=== PATIENT | female | born 1995 | race Caucasian/White ===

== ENCOUNTER 2023-03-16 15:42 | Outpatient (CLI) | payer BC, SELFPAY ==
[2023-03-16 18:29] LABS: Basophils Percent Auto 0.3 % (0.2-1.2); Eosinophils Absolute Auto 0.2 K/mm3 (0-0.3); Eosinophils Percent Auto 1.5 % (0-4.4); Hematocrit 39.6 % (37.0-47.0); Hemoglobin 13.4 g/dL (12.0-15.0); Immature Granulocyte Absolute 0.04 K/mm3 (0.00-0.031); Immature Granulocyte Percent A 0.4 % (0-0.5); Lymphocytes Absolute Auto 2.41 K/mm3 (0.9-3.2); Lymphocytes Percent Auto 22.7 % (18.3-44.2); Mean Corpuscular HGB Conc 33.8 g/dl (32-36); Mean Corpuscular Hemoglobin 30.8 pg (26-34); Mean Platelet Volume 9.2 fl (7.4-10.4); Monocytes Absolute Auto 0.9 K/mm3 (0.1-0.6); Monocytes Percent Auto 8.2 % (2.6-8.5); Neutrophils Absolute Auto 7.1 K/mm3 (1.3-6.7); Neutrophils Percent Auto 66.9 % (45.5-73.1); Platelet Count Result 214 k/mm3 (150-375); Red Blood Count 4.35 M/mm3 (4.2-5.4); Red Cell Distribution Width 11.6 % (11.5-14.5); White Blood Count 10.6 K/mm3 (4.5-10.0)
[2023-03-16 20:17] LABS: HIV 1/2 Ab P24 Ag Result Negative (Negative); Rubella IgG Antibody 13.1 IU/ML
[2023-03-16 20:38] LABS: Hepatitis B Surface Antigen Negative (Negative)
[2023-03-17 10:49] LABS: Rapid Plasma Reagin Non-Reactive (NonReactive)
== END 2023-03-16 15:43 | disposition home or self-care (01) ==
LOC: ANHGOSHLAB 15:44
PROVIDERS: Visit Provider Student in an Organized Health Care Education/Training Program
DX: N94.89 Other specified conditions associated with female genital organs and menstrual cycle (principal); N91.2 Amenorrhea, unspecified
CPT/HCPCS: 36415; 84702; 85025; 86592; 86644; 86703; 86747; 86762; 86787; 86850; 86900; 86901; 87086; 87340; G0432

== ENCOUNTER 2023-07-21 07:23 | Outpatient (CLI) | payer BC, SELFPAY ==
[2023-07-21 08:45] LABS: Hemoglobin 11.6 g/dL (12.0-15.0); Mean Corpuscular HGB Conc 33.1 g/dl (32-36); Mean Corpuscular Hemoglobin 31.4 pg (26-34); Mean Corpuscular Volume 94.9 fl (80-100); Mean Platelet Volume 9.3 fl (7.4-10.4); Platelet Count Result 159 k/mm3 (150-375); Red Blood Count 3.69 M/mm3 (4.2-5.4); Red Cell Distribution Width 11.9 % (11.5-14.5); White Blood Count 10.9 K/mm3 (4.5-10.0)
[2023-07-21 09:05] LABS: Glucose 1 Hour PP 50gm Dose 98 mg/dL
[2023-07-21 09:38] LABS: HIV 1/2 Ab P24 Ag Result Negative (Negative)
== END 2023-07-21 07:24 | disposition home or self-care (01) ==
LOC: ANHLAB 07:26
PROVIDERS: Visit Provider Student in an Organized Health Care Education/Training Program
DX: Z34.90 Encounter for supervision of normal pregnancy, unspecified, unspecified trimester (principal)
CPT/HCPCS: 36415; 82947; 85027; 86703; G0432

== ENCOUNTER 2023-09-08 14:11 | Outpatient (CLI) | payer BC, SELFPAY ==
--- NOTE | ~2023-09-08 | US_ITS ---
EXAMINATION: US OB follow up DATE: 09/08/2023 14:59 INDICATION: Encounter for supervision of normal . Assess growth and amniotic fluid ind ex. TECHNIQUE: Real-time ultrasound of the pelvis was performed. The interpreting radiologist was not pre sent for the study. COMPARISON: None. FINDINGS: There is a single living fetus in vertex presentation. The placenta is posterior and not low-lying. heart rate is 132 beats per minute (bpm). The amniotic fluid index is 17.1 cm, which is normal (5th%-95%: 7.9-24.9 cm at C5 weeks estimated gestational age). The following biometric data were obtained: BPD: 8.7 cm -> 35 weeks 0 days Head circumference: 31.4 cm -> 35 weeks 1 days Abdominal circumference: 31.7 cm -> 35 weeks 4 days Femur length: 6.9 cm -> 35 weeks 2 days These measurements are concordant. Head circumference to abdominal circumference ratio: 0.99 (normal range 0.93-1.10). Estimated weight: 2669 g (+/-) 400 g or 5 lbs. 14 oz. (+/-) 14 oz. IMPRESSION: 1. Single living fetus in vertex presentation with heart rate of 132 bpm. 2. Normal amniotic fluid index of 17.1 cm. 3. Estimated weight is 44th percentile by Hadlock criteria when 10/09/2023 is used as the estima haydee date of delivery (KATI). Please correlate with clinical information or earlier ultrasounds for mos t accurate KATI. Reviewed, dictated and finalized at location A. IMPRESSION: 1. Single living fetus in vertex presentation with heart rate of 132 bpm. 2. Normal amniotic fluid index of 17.1 cm. 3. Estimated weight is 44th percentile by Hadlock criteria when 10/09/2023 is used as the estimated date of delivery (KATI). Please correlate with clinica l information or earlier ultrasounds for most accurate KATI.
== END 2023-09-08 14:12 ==
PROVIDERS: PCP Student in an Organized Health Care Education/Training Program; Visit Provider Student in an Organized Health Care Education/Training Program
DX: Z34.90 Encounter for supervision of normal pregnancy, unspecified, unspecified trimester (principal)
CPT/HCPCS: 76816

== ENCOUNTER 2023-10-07 00:55 | Inpatient (IN) | payer BC, SELFPAY ==
[2023-10-07] VITALS (122 sets, daily range): BP systolic 84–137; BP diastolic 30–101; PULSE 68–144; RESP 16; TEMP 36.4–37.9; O2SAT 86–100; BMI 32.1
--- NOTE | 2023-10-07 01:54 | LDADM ---
This patient, Mary Jane Ayon, was admitted to Labor/Delivery/Recovery 105 on 10/07/23 at 00:55. Plans for labor, pain management and were discussed with patient. Patient/family oriented to hospital policies and general routines including ID bracelet, bed and alarms, visiting hours, pain management, procedures, bathroom and other care routines, personal items, smoking policy, room service/diet and guest tray routines, security routines, and visiting hours. Patient/Family are encouraged to report perceived risks to care and to ask questions if they do not understand what they are told or what they should do. See OBIX for further documentation.
[2023-10-07 01:55] LABS: Basophils Percent Auto 0.3 % (0.2-1.2); Eosinophils Absolute Auto 0.1 K/mm3 (0-0.3); Eosinophils Percent Auto 1.3 % (0-4.4); Hematocrit 32.7 % (37.0-47.0); Hemoglobin 11.4 g/dL (12.0-15.0); Immature Granulocyte Absolute 0.14 K/mm3 (0.00-0.031); Immature Granulocyte Percent A 1.3 % (0-0.5); Lymphocytes Absolute Auto 1.98 K/mm3 (0.9-3.2); Lymphocytes Percent Auto 17.9 % (18.3-44.2); Mean Corpuscular HGB Conc 34.9 g/dl (32-36); Mean Corpuscular Volume 88.9 fl (80-100); Mean Platelet Volume 9.7 fl (7.4-10.4); Monocytes Absolute Auto 1.3 K/mm3 (0.1-0.6); Monocytes Percent Auto 11.9 % (2.6-8.5); Neutrophils Absolute Auto 7.5 K/mm3 (1.3-6.7); Neutrophils Percent Auto 67.3 % (45.5-73.1); Platelet Count Result 143 k/mm3 (150-375); Red Blood Count 3.68 M/mm3 (4.2-5.4); White Blood Count 11.1 K/mm3 (4.5-10.0)
[2023-10-07 02:48] LABS: HIV 1/2 Ab P24 Ag Result Negative (Negative)
[2023-10-07] MEDS: LACTATED RINGERS 1,000 ML 125 ML IV CONT ×2 (04:22→09:31)
--- NOTE | 2023-10-07 05:27 | WPDANESEPP ---
Anes - Eval Pre Procedure Procedure: labor epidural Date/Time: 10/07/23 05:27 Surgeon: ranulfo Preop Diagnosis: pain during labor Pre Op Diagnosis: Labor Patient Data Age: 27 Gender: F Height: 1.7 m Weight: 93 kg Last Vital Signs Temp 36.4 C 10/07/23 04:00 Pulse 87 10/07/23 05:25 BP 112/65 10/07/23 05:25 Pulse Ox 86 L 10/07/23 05:22 O2 Del Method Room Air 10/07/23 00:55 Allergies Allergy/AdvReac Type Severity Reaction Status Date / Time amoxicillin Allergy Mild Hives Verified 10/06/23 16:01 cephalexin Allergy Mild Hives Verified 10/06/23 16:01 diphenhydramine Allergy Mild Hives Verified 10/06/23 16:01 Home Medications Medication Instructions Recorded Confirmed Type vits no.126-ferrous fum 1 tablet PO 02/22/23 09/30/23 History 28 mg iron-folic acid 800 mcg tablet (Classic ) aspirin 81 mg tablet,delayed 81 mg PO DAILY 06/16/23 09/30/23 History release (Adult Low Dose Aspirin) Laboratory Tests 10/07/23 10/07/23 01:46 01:47 WBC 11.1 H K/mm3 (4.5-10.0) RBC 3.68 L M/mm3 (4.2-5.4) Hgb 11.4 L g/dL (12.0-15.0) Hct 32.7 L % (37.0-47.0) MCV 88.9 fl (80-100) MCH 31.0 pg (26-34) MCHC 34.9 g/dl (32-36) RDW 12.0 % (11.5-14.5) Plt Count 143 L k/mm3 (150-375) MPV 9.7 fl (7.4-10.4) Immature Gran % (Auto) 1.3 H % (0-0.5) Neut % (Auto) 67.3 % (45.5-73.1) Lymph % (Auto) 17.9 L % (18.3-44.2) Braxton % (Auto) 11.9 H % (2.6-8.5) Eos % (Auto) 1.3 % (0-4.4) Baso % (Auto) 0.3 % (0.2-1.2) Lymph # (Auto) 1.98 K/mm3 (0.9-3.2) Braxton # (Auto) 1.3 H K/mm3 (0.1-0.6) Eos # (Auto) 0.1 K/mm3 (0-0.3) Baso # (Auto) 0.0 K/mm3 (0.0-0.1) Abs Immat Gran (auto) 0.14 H K/mm3 (0.00-0.031) Absolute Neuts (auto) 7.5 H K/mm3 (1.3-6.7) Absolute Nucleated RBC 0.000 K/mm3 (0.0-0.012) Nucleated RBC % 0.0 % (0.0-0.2) RPR Pending HIV 1&2 Ab/P24 Ag 4thGn Negative (Negative) Blood Type O Positive Antibody Screen Negative Patient hx anesthesia problems: none Family hx anesthesia problems: none Results Review: All pre-operative results and documents have been reviewed as part of the pre-operative evaluation. [facility] Past Medical History Medical History (Updated 10/07/23 @ 05:27 by Liana Zambrano CRNA) IUP (intrauterine ), incidental Suppression of menses Family History Family History Grandparent Lymphoma Social History Social History Smoking status: Never smoker Second hand tobacco smoke exposure: No Alcohol intake: current Alcohol use details: occasional Substance use: never Do You Feel Safe in your Home?: Yes Lack of Transportation: No Lack of Food: Never True Current Housing: I Have Housing Concerned About Future Housing: No Difficulty Paying Gas/Electric Bills: No Difficulty Paying for Meds: No Currently Unemployed: No Education: Bachelor's Degree Difficulty w/ Childcare or Family Care: No Living arrangements: with family Occupation/Education: occupation Spiritual care concerns: No Exam Day of Procedure 10/07/23 05:27
--- NOTE | 2023-10-07 07:18 | WPDHPUPDATE1 ---
History and Physical Update Update Date/Time: 10/07/23 07:18 27 yo G1 at 39w4d who presents with SROM History and Physical has been reviewed, including an updated exam of the patient. There are NO changes in the patient's condition. Risks, benefits, and alternatives have been discussed and questions answered. Patient agrees to proceed with procedure. A/P: admit to L&D routine admission orders Rh+ GBS neg continuous EFM may have epidural PRN pitocin augmentation PRN
[2023-10-07] MEDS: ACETAMINOPHEN 500 MG TABLET 1000 MG PO (09:06)
[2023-10-07] MEDS: OXYTOCIN 30 UNITS/NS 500 ML 30 UNITS/500 ML BAG 999 UNITS IV CONT (10:18)
[2023-10-07] MEDS: miSOPROStol 200 MCG TABLET 1000 MCG RECTAL (10:22)
--- NOTE | 2023-10-07 10:41 | P.PCNOB_ITS ---
OB - Vaginal Delivery Note Procedure Delivery date: 10/07/23 Induction method: None Delivery augmentation: Pitocin Delivery monitor: External FHT and External Uterine Route of delivery: Episiotomy description: None Laceration Description: Vaginal (superficial, left) and Superficial Delivery repair: vicryl Specimen: No Quantitative Blood Loss (ml): 300 Anesthesia type: Epidural Disposition: Floor Complications: No immediate complications Narrative: Patient pushed for a spontaneous vaginal delivery. The fetus was delivered atraumatically and placed on the maternal abdomen. The cord was clamped and cut after 1 minute of life. The cord was double clamped and cut and a segment of cord was collected for cord gases. Cord blood was collected for blood type and Coomb's testing. The placenta delivered spontaneously and was noted to be intact. The perineum was inspected and noted to be intact. There was a superficial left vaginal laceration that was made hemostatic with a single figure of eight 3-0 vicryl suture. Uterus palpated firm but a consistent trickle of blood was noted from the cervix. 1000 mcg of cytotec was placed rectally. [place] Baby Date of : 10/07/23 Time of : 10:15 Weeks of gestation at delivery: 39 Infant gender: Female presentation: vertex position: Right Occiput Anterior Placenta delivery description: Spontaneous Cord Vessel Description: 3 Vessels score one minute: 8 score five minutes: 8
[2023-10-07] MEDS: OXYTOCIN 30 UNITS/NS 500 ML 30 UNITS/500 ML BAG 125 UNITS IV CONT (10:54)
[2023-10-07 11:37] LABS: Rapid Plasma Reagin Non-Reactive (NonReactive)
[2023-10-07] MEDS: BENZOCAINE 20% AER SPR (*SP) 56 GM CAN 1 SPRAY TOPICAL (12:28)
[2023-10-07] MEDS: WITCH HAZEL 40 PADS 1 PAD TOPICAL (12:28)
[2023-10-07] MEDS: IBUPROFEN 600 MG TABLET PO (15:31)
--- NOTE | 2023-10-07 15:59 | OBPPTRN ---
1300-Patient transferred to post room #279 via wheelchair. Support person present. Oriented to unit, room, information board, rooming in, admission packet and security measures. Patient verbalizes understanding.
[2023-10-07] MEDS: POLYSACCHARIDE IRON COMPLEX 150 MG CAPSULE PO (19:35)
[2023-10-07] MEDS: ACETAMINOPHEN 325 MG TABLET 650 MG PO (19:35)
[2023-10-07] MEDS: DOCUSATE SODIUM 100 MG CAPSULE PO (19:35)
[2023-10-08 04:30] VITALS: BP 109/74; PULSE 71; RESP 16; O2SAT 99
[2023-10-08] MEDS: ACETAMINOPHEN 325 MG TABLET 650 MG PO ×2 (05:14→16:37)
[2023-10-08 05:26] LABS: Hematocrit 31.3 % (37.0-47.0); Hemoglobin 10.5 g/dL (12.0-15.0)
--- NOTE | 2023-10-08 07:54 | WPDANLDPN2 ---
Anes-Prog Note L&D Date/Time: 10/08/23 07:54 Comfortable throughout: labor and delivery Neuraxial method: epidural Epidural/Spinal procedure site: clean & non-tender Neuro status: Neuro function grossly intact. Cardiovascular status: normal Respiratory status: normal Airway patency: baseline Mental status: baseline Post-Op hydration status: normal Vital Signs: Last Vital Signs Temp 37.1 C 10/07/23 19:30 Pulse 71 10/08/23 04:30 Resp 16 10/08/23 04:30 BP 109/74 10/08/23 04:30 Pulse Ox 99 10/08/23 04:30 O2 Del Method Room Air 10/08/23 04:30 Pain score (VAS): 0/10 I/O: Intake & Output 10/07/23 10/07/23 10/08/23 15:59 23:59 07:59 Intake Total 1675 240 Output Total 300 Balance 1375 240 Post-procedural complaints: none Patient feedback: Patient satisfied with anesthetic care.
[2023-10-08 08:00] VITALS: PULSE 66; RESP 16; O2SAT 99
[2023-10-08 08:15] VITALS: BP 110/70; PULSE 66; RESP 16; TEMP 36.4; O2SAT 99
[2023-10-08] MEDS: DOCUSATE SODIUM 100 MG CAPSULE PO ×2 (08:59→16:37)
[2023-10-08] MEDS: MULTIVIT/MIN/PREN/FOL AC/IRON TABLET 1 TAB PO (08:59)
--- NOTE | 2023-10-08 12:24 | PM.OBPNVD ---
OB - PN: Subj Subjective Date/time seen: 10/08/23 12:24 Patient comments: no complaints, pain well controlled and tolerating diet [place] feeding status: exclusively breast feeding Narrative: patient doing well this AM. No complaints. Pain is well controlled. She reports minimal bleeding. She is ambulating and voiding without difficulty. She is tolerating PO. She denies N/V, fever, chills. OB - PN: Obj Data Labs 10/08/23 03:55 Labs: Laboratory Results - last 24 hr 10/08/23 03:55 Hgb 10.5 L Hct 31.3 L OB - PN A/P Plan day: 1 Plan: routine care Comments: patient doing well H/H stable continue routine care Time Spent With Patient Time: Total time spent is greater than 50% in coordination of care (as documented) at patient's floor/unit and/or counseling patient: Time with patient: less than 15 minutes Review of Systems Review of Systems: All systems reviewed & are unremarkable except as noted in HPI and below Exam Const: General: comfortable and no acute distress Resp: Effort & Inspection: normal respiratory effort Cardio: Rate: regular rate GI: GI Palp: Yes Soft to palpation and No Tenderness to palpation present (GI) Auscultation: normal bowel sounds Other: fundus firm and below umbilicus. Psych: Affect: normal affect
--- NOTE | 2023-10-08 13:35 | PC.NURSE ---
Mother verbalizes she is able to independently latch with appropriate positioning and alignment. She agrees to call out at the next feeding to have her latch assessed. The latch at the next feed was observed and found to be appropriate. She was latched to the right breast in cradle position. Infant is sucking consistently, with intermittent swallows. Educated mother on listening for swallows, milk production, cluster feeding and nipple care. She denies any consistent nipple pain during the feeding and has tenderness upon latching that dissipates as nurses. Infant is currently meeting outcomes for weight, output, and jaundice. Discussed with mother that as long as meets required outcomes for all these areas there is no medical need to supplement with formula unless it is the mother's preference to do so. Mother is reassured that infant is doing everything a typical does and that she is providing excellent care and feeds for her baby. Mother declines any additional assistance or education at this time. Mother is encouraged to call for assistance if her infant doesn?t latch, pain with latching, questions or concerns. Mother voiced understanding of information shared along with the mom/baby guide for an additional resource. Reported to the Primary RN.
[2023-10-08 20:30] VITALS: BP 109/68; PULSE 67; RESP 18; TEMP 36.5; O2SAT 100
--- NOTE | 2023-10-09 08:18 | PM.OBDSVD ---
DS: Admitting Diagnosis Discharge Date 10/09/23 Admitting Diagnosis intrauterine at term DS: Discharge Diagnosis Discharge Diagnosis (1) Normal vaginal delivery: Code(s): O80 - Encounter for full-term uncomplicated delivery Status: Acute OB - DS: Summary OB Procedures : None OB Procedures Intrapartum: Spontaneous Vag Delivery OB Procedures: : None Peripartum Data Laceration Description: Vaginal (superficial, left) and Superficial Episiotomy description: None Status at Discharge Functional status at discharge: independent ambulation Overall status at discharge: patient is back to baseline Time Spent with Patient Time attestation: Total time spent providing and/or coordinating discharge services: Time spent: Less than 30 minutes Exam Const: General: comfortable and no acute distress Resp: Effort & Inspection: normal respiratory effort Auscultation: clear to auscultation bilaterally Cardio: Rate: regular rate GI: GI Palp: Yes Soft to palpation Auscultation: normal bowel sounds Other: Fundus firm below umbilicus Psych: Appearance: grossly normal Mental Status: mental status grossly normal Affect: normal affect Discharge Plan Discharge Discharging Clinician: Juan Antonio Burroughs Patient Disposition: Home, Self-Care Activity: as tolerated and pelvic rest Diet: regular Patient Instructions: Antibiotic Form, Vaginal Delivery (DC) Stand Alone Forms: General Discharge Information Follow-up/Referrals: Juan Antonio Burroughs MD [Physician] - Discharge Medications: New acetaminophen 500 mg tablet 500 mg PO Q6H PRN (Reason: pain) Qty: 30 0RF ibuprofen 600 mg tablet 600 mg PO Q6H PRN (Reason: pain) Qty: 30 0RF Continued aspirin [Adult Low Dose Aspirin] 81 mg tablet,delayed release (DR/EC) 81 mg PO DAILY Classic 28 mg iron- 800 mcg tablet 1 tablet PO Date of admission: 10/07/23 00:55 Primary Care Provider: PHYSICIAN,CLINICAL TRIALS SYSTEMS ADMINISTRATOR Admitting Provider: Juan Antonio Burroughs Attending physician on admission: Juan Antonio Burroughs Condition: Stable
[2023-10-09] MEDS: MULTIVIT/MIN/PREN/FOL AC/IRON TABLET 1 TAB PO (08:43)
[2023-10-09] MEDS: DOCUSATE SODIUM 100 MG CAPSULE PO (08:44)
[2023-10-09] MEDS: IBUPROFEN 600 MG TABLET PO (08:44)
[2023-10-09 08:45] VITALS: BP 114/69; PULSE 61; RESP 18
--- NOTE | 2023-10-09 08:45 | PC.NURSE ---
Patient instructed to view the discharge video Mother & Baby Care, The First Two Weeks . Patient was given the opportunity and encouraged to ask questions. Patient verbalized understanding of information shared and has been given the mother/baby guide for home reference.
--- NOTE | 2023-10-09 12:00 | PC.NURSE ---
Patient requested information regarding pumping and how begin building a supply of breastmilk. Pumping and returning to work handouts given and reviewed. Encouraged mother to pump in the mornings after her first daily . Patient has ordered a Ha[place]aa for milk collection when she leaks during feeds. Patient has her own breast pump at home. Discussed selecting the correct flange size and handout with flange sizing pictures given. Mother very receptive of teaching and has no further questions at this time. Outpatient resources provided.
[2023-10-11 08:21] VITALS: BP 111/69; PULSE 74; RESP 18; TEMP 37.3; O2SAT 100
== END 2023-10-09 12:50 | disposition home or self-care (01) | DRG 807 ==
LOC: ANHLDR 01:26 → ANHOB2 13:01
PROVIDERS: Admitting Provider Student in an Organized Health Care Education/Training Program; Visit Provider Student in an Organized Health Care Education/Training Program
DX: O70.0 First degree perineal laceration during delivery (principal); Z37.0 Single live birth; Z3A.39 39 weeks gestation of pregnancy
CPT/HCPCS: 36415; 85014; 85018; 85025; 86592; 86703; 86850; 86900; 86901; A9270; G0432; J2590; J2795; J7120

== ENCOUNTER 2025-02-07 15:38 | Outpatient (CLI) | payer OTHER, SELFPAY ==
[2025-02-07 17:02] LABS: Hematocrit 30.6 % (37.0-47.0); Hemoglobin 10.3 g/dL (12.0-15.0); Mean Corpuscular HGB Conc 33.7 g/dl (32-36); Mean Corpuscular Hemoglobin 30.7 pg (26-34); Mean Corpuscular Volume 91.3 fl (80-100); Platelet Count Result 153 k/mm3 (150-375); Red Blood Count 3.35 M/mm3 (4.2-5.4); White Blood Count 8.9 K/mm3 (4.5-10.0)
[2025-02-07 17:15] LABS: Glucose 1 Hour PP 50gm Dose 91 mg/dL
[2025-02-07 17:58] LABS: HIV 1/2 Ab P24 Ag Result Negative (Negative)
[2025-02-07 18:06] LABS: Syphilis IgG/IgM Antibody Non-Reactive (Nonreactive)
== END 2025-02-07 15:39 | disposition home or self-care (01) ==
LOC: ANHLAB 15:39
PROVIDERS: PCP Family Medicine; Visit Provider Student in an Organized Health Care Education/Training Program
DX: Z34.90 Encounter for supervision of normal pregnancy, unspecified, unspecified trimester (principal)
CPT/HCPCS: 36415; 82947; 85027; 86593; 86703; G0432

== ENCOUNTER 2025-03-20 14:45 | Outpatient (CLI) | payer OTHER, SELFPAY ==
--- NOTE | ~2025-03-20 | US_ITS ---
EXAMINATION: US OB follow up DATE: 03/20/2025 15:12 INDICATION: Assess growth and positioning during third trimester TECHNIQUE: Real-time ultrasound of the pelvis was performed. The interpreting radiologist was not present for the study. COMPARISON: None. FINDINGS: There is a single living fetus in vertex presentation. The placenta is anterior. heart rate is 118 beats per minute (bpm). The amniotic fluid index is 8.8 cm, which is normal. (5th%-95%: 8.6-24.2 cm at 32 weeks estimated gestational age). The following biometric data were obtained: BPD: 8.2 cm -> 32 weeks 6 days Head circumference: 30.1 cm -> 33 weeks 2 days Abdominal circumference: 30.8 cm -> 34 weeks 5 days Femur length: 6.8 cm -> 35 weeks 0 days These measurements are concordant. Head circumference to abdominal circumference ratio: 0.98 (normal range 0.95-1.11). Estimated weight: 2435 g (+/-) 365 g or 5 lbs. 6 oz. (+/-) 13 oz. IMPRESSION: 1. Single living fetus in vertex presentation with heart rate of 118 bpm. 2. Normal amniotic fluid index of 8.8 cm. 3. Estimated weight is 87th percentile by Hadlock criteria when 05/09/2025 is used as the estimated date of delivery (KATI). Please correlate with clinical information or earlier ultrasounds for most accurate KATI. Reviewed, dictated and finalized at location A. [employer] IMPRESSION: 1. Single living fetus in vertex presentation with heart rate of 118 bpm. 2. Normal amniotic fluid index of 8.8 cm. 3. Estimated weight is 87th percentile by Hadlock criteria when 05/09/2025 is used as the estimated date of delivery (KATI). Please correlate with clinica l information or earlier ultrasounds for most accurate KATI.
== END 2025-03-20 14:46 | disposition home or self-care (01) ==
PROVIDERS: PCP Student in an Organized Health Care Education/Training Program; Visit Provider Student in an Organized Health Care Education/Training Program
DX: Z34.90 Encounter for supervision of normal pregnancy, unspecified, unspecified trimester (principal)
CPT/HCPCS: 76816

== ENCOUNTER 2025-04-09 12:47 | Outpatient (CLI) | payer OTHER, SELFPAY ==
--- NOTE | ~2025-04-09 | US_ITS ---
EXAMINATION: US OB follow up DATE: 04/09/2025 13:10 INDICATION: Encounter for supervision of normal . TECHNIQUE: Real-time ultrasound of the pelvis was performed. COMPARISON: Ultrasound 03/20/2025 FINDINGS: There is a single living fetus in vertex presentation. The placenta is anterior. heart rate is 116 beats per minute (bpm). The amniotic fluid index is 10.8 cm, which is normal. The following biometric data were obtained: Biparietal diameter (BPD): 8.8 cm; head circumference (HC): 32.7 cm; abdominal circumference (AC): 33.7 cm; femur length (FL): 7.7 cm. These measurements are discordant with high FL/BPD ratio. Estimated weight is 3289 g +/- 493 g, which correlates with the 47th percentile when 04/20/25 is used as estimated date of delivery. As single measurements, these parameters are each equal to the following estimated gestational ages: BPD: 35 weeks 3 days. HC: 37 weeks 1 days. AC: 37 weeks 4 days. FL: 39 weeks 3 days. estimated gestational age based solely on measurements from this exam is 37 weeks 3 days +/- 2 weeks 4 days. IMPRESSION: 1. Single living fetus in vertex presentation. 2. Estimated weight is 3289 g +/- 493 g, which correlates with the 47th percentile when 04/20/25 is used as estimated date of delivery. 3. Discordant biometrics with high FL/BPD ratio. Reviewed, dictated and finalized at location E. RNAL SPECIALIST
== END 2025-04-09 12:48 | disposition home or self-care (01) ==
LOC: GOSHIMG 12:47
PROVIDERS: PCP Student in an Organized Health Care Education/Training Program; Visit Provider Student in an Organized Health Care Education/Training Program
DX: Z34.93 Encounter for supervision of normal pregnancy, unspecified, third trimester (principal); Z3A.37 37 weeks gestation of pregnancy
CPT/HCPCS: 76816